=== PATIENT | female | born 1940 | race Caucasian/White ===

== ENCOUNTER 2017-06-19 09:22 | Observation (INO) ==
[2017-06-19] MEDS ORDERED: ASPIRIN PO STA (09:33)
--- NOTE | 2017-06-19 09:37 | EKG Report ---
Test Performed on : 06/19/2017 09:31:34 AM Test Reason : CHEST PAIN Blood Pressure : / mmHG Vent. Rate : 065 BPM Atrial Rate : 065 BPM P-R Int : 152 ms QRS Dur : 072 ms QT Int : 414 ms P-R-T Axes : 067 005 050 degrees QTc Int : 430 ms Sinus rhythm. with premature atrial complexes. Possible Inferior infarct , age undetermined Abnormal ECG When compared with ECG of 30-DEC-2009 11:19, premature atrial complexes. are now present Borderline criteria for Inferior infarct are now present Unconfirmed Result
[2017-06-19 10:19] LABS: INR 0.9 (0.86-1.15); PROTIME 12.9 Seconds (12.1-15.5)
[2017-06-19 10:20] LABS: PTT PL 33.2 Seconds (22.6-43.9)
--- NOTE | 2017-06-19 10:22 | Diag Imaging Result Doc PS360 ---
EXAM: CHEST-PORTABLE HISTORY: CP TECHNIQUE: Single view of the chest was performed portably. COMPARISON: 12/03/2016 FINDINGS: There is stable moderate elevation of the right hemidiaphragm. There are surgical clips right axilla. The cardiomediastinal silhouette is within normal limits. The pulmonary vasculature is not congested. No infiltrate, effusion, or pneumothorax is appreciated. IMPRESSION: No acute cardiopulmonary abnormality is identified. Electronically signed by Diana Michelle 06/19/2017 10:20 AM
[2017-06-19 10:26] LABS: AGAP 10; ALBUMIN 3.9 g/dL (3.5-5.0); ALKALINE PHOSPHATASE 77 U/L (32-104); BUN 11 mg/dL (8-22); CALCIUM 9.1 mg/dL (8.8-10.2); CHLORIDE 105 mmol/L (98-107); CK PROFILE 34 U/L (24-173); COSMO 285; GOT 15 U/L (10-30); GPT 13 U/L (10-36); MAGNESIUM 2.1 mg/dL (1.5-2.7); POTASSIUM 3.7 mmol/L (3.5-5.1); SODIUM 142 mmol/L (136-145); TCO2 27 mmol/L (25-35); TOTAL PROTEIN 6.2 g/dL (6.3-8.3)
[2017-06-19] MEDS ORDERED: APRESOLINE IV ONE (10:55)
--- NOTE | 2017-06-19 10:56 | ED EKG INTERP ---
This chart was entered by Erica Smith Scribe, acting as scribe for Dl Briggs MD. EKG Interpretation - EKG Time of EKG reading by physician:: 09:31 EKG Read and Signed by:: Dl Briggs EKG Interpretation (*Must complete 3 of following elements*): Abnormal Rate: 65 Rhythm: sinus rhythm with premature atrial complexes [place]: normal QRS: normal ST Wave: normal Comments: possible inferior infarct, age undetermined Attestation - Physician/ IMELDA Attestation Patient care was provided by Advanced Practice Provider:: No The physician spent face to face time with patient:: Yes Advanced Practice Provider documentation review:: Supervising physician onsite and consulted in the evaluation and care of this patient. The physician did have a face to face encounter with the patient. This chart was documented by the indicated scribe, (Erica Smith Scribe) and accurately reflects the services I performed and decisions made by me, Dl Briggs MD, as attested by the provider's signature.
--- NOTE | 2017-06-19 11:19 | PROVIDER DOCUMENTATION ---
This chart was entered by Erica Smith Scribe, acting as scribe for Dl Briggs MD. HPI-Chest Pain - General Chief Complaint: Chest Pain Stated Complaint: CHEST PAIN Time Seen by Provider: 06/19/17 09:32 Source: patient Allergies/Adverse Reactions: Patient Allergies Allergy/AdvReac Type Severity Reaction Status Date / Time No Known Allergies Allergy Verified 06/19/17 09:29 Home Medications: Home Medication List Medication Instructions Recorded Confirmed Last Taken Type Anastrozole [Arimidex] 1 mg PO DAILY 06/19/17 06/19/17 06/19/17 History Aspirin 325 mg PO QHS 06/19/17 06/19/17 Unknown History Atenolol [Tenormin] 25 mg PO BID 06/19/17 06/19/17 06/19/17 History - History of Present Illness-CP Nature of Presenting Problem: Patient is a 77 year old female who presents in the ED with complaints of chest pain. She states she has had an intermittent tight/heavy sensation in her chest over the last several days, and states she has had the pain approximately two times a day since onset. She also states her pain lasts approximately an hour with each episode, and states she has also had mild nausea. She reports she has not had a stress test in many years, and reports she has a history of hypertension for which she takes Atenolol. She also reports she takes aspirin daily, has a history of breast cancer (in remission for 9 years), and drinks one glass of wine with dinner each evening. She denies headache, vomiting, urinary changes, and any other symptoms. Location: reports: substernal Chest Pain Radiation: reports: no radiation Quality of Pain: reports: pressure, tightness Severity in ED: moderate Onset/Duration: abrupt, other ("several days") Timing: gone now, intermittent Context/Activities at Onset: reports: none Modifying Factors: improves with: nothing Associated Symptoms: reports: nausea. denies: vomiting Nitro Today/Relief: no nitro taken today Aspirin Treatment Today: 325 mg x 1, provided at home Prior Chest Pain/Cardiac Workup: reports: no prior chest pain, no prior cardiac workup, non-cardiac Similar Symptoms Previously?: No Recently Seen Here or By Another Healthcare Provider: No Review of Systems - Adult - REVIEW OF SYSTEMS - ADULT Constitutional: reports: no symptoms reported Eyes: reports: no symptoms reported Ears, Nose, Mouth & Throat: reports: no symptoms reported Cardiovascular: reports: chest pain Respiratory: reports: no symptoms reported Gastrointestinal: reports: nausea. denies: vomiting Genitourinary: reports: no symptoms reported. denies: see HPI, dysuria, discharge, frequency, flank pain, frequent UTI's, hematuria, hesitency, incontinence, urinary retention, urgency, other Musculoskeletal: reports: no symptoms reported Integumentary: reports: no symptoms reported Neurological: reports: no symptoms reported. denies: headache/migraines Psychiatric: reports: no symptoms reported Endocrine: reports: no symptoms reported Hematologic/Lymphatic: reports: no symptoms reported Allergic/Immunologic: reports: no symptoms reported All Other Systems: Reviewed and Negative Past History - Adult - PAST MEDICAL HISTORY-ADULT Review of Records: reports: Old Records Reviewed, Nursing Assessment Review, Medications Reviewed Major Childhood Illnesses: reports: denies history Cardiovascular: reports: HTN Respiratory: reports: denies history Gastrointestinal: reports: denies history Obstetrical/Gynecological: reports: denies history Genitourinary: reports: denies history Musculoskeletal: reports: denies history Neurological: reports: denies history Psychiatric: reports: denies history Endocrine/Immune: reports: cancer (breast) Other Conditions: reports: denies history - IMMUNIZATION STATUS Childhood Immunizations: See Nurse Assessment Flu Vaccine: See Nurse Assessment - FAMILY HISTORY Family History: reviewed, not pertinent - SOCIAL HISTORY Smoking: denies Substance Use: none/never Alcohol Use Frequency: every day Number of drinks per typical drinking period:: 1 drink (one glass of wine daily) Living Situation: family Physical Exam-General - PHYSICAL EXAM-ADULT Initial Vital Signs Reviewed: Yes - CONSTITUTIONAL General Appearance: alert, no apparent distress - EYES Eyes: PERRL/EOMI, pink conjunctivae - HEAD, EARS, NOSE, MOUTH & THROAT HENMT: normocephalic/atraumatic, moist mucous membranes - NECK Neck: full range of motion, supple - RESPIRATORY Respiratory: chest non-tender, lungs clear, normal breath sounds, no pleuratic chest pain, no respiratory distress, no accessory muscle use - CARDIOVASCULAR Cardiovascular: normal peripheral pulses, regular rate, rhythm, no edema, no gallop, no JVD, no murmur - GASTROINTESTINAL (ABDOMEN) Abdominal Exam: non tender, soft, no organomegaly, no pulsatile mass - LYMPHATIC Lymphatic: no adenopathy - MUSCULOSKELETAL Back Exam: normal inspection, no CVA tenderness, no vertebral tenderness Extremity: normal range of motion, non-tender, no pedal edema, no calf tenderness, pelvis stable - SKIN Integumentary: normal color, normal turgor, warm/dry - NEUROLOGIC Neurologic: grossly normal, no motor/sensory deficits - PSYCHIATRIC Psych/Mental Status: normal mood/affect, normal thought content, normal thought process, oriented x 3 Progress - PLAN OF CARE/RESULTS Progress/Plan/Lab Results: Vital Signs - 8 hr 06/19/17 09:26 Pulse Rate 62 Respiratory Rate 18 Blood Pressure 170/99 Laboratory Results - last 24 hr 06/19/17 06/19/17 06/19/17 09:55 09:55 09:55 PT INR APTT (Factor Assay) D-Dimer Sodium 142 Potassium 3.7 Chloride 105 Carbon Dioxide 27 Anion Gap 10 BUN 11 Creatinine 0.6 Estimated GFR/1.73 m2 > 60 BUN/Creatinine Ratio 18 Glucose 137 H Calculated Osmolality 285 Calcium 9.1 Magnesium 2.1 Total Bilirubin 0.40 AST 15 ALT 13 Alkaline Phosphatase 77 Creatine Kinase 34 Troponin T < 0.010 [id number] Pept 302 Total Protein 6.2 L Albumin 3.9 Globulin 2.0 Albumin/Globulin Ratio 2.0 06/19/17 09:55 PT 12.9 INR 0.90 APTT (Factor Assay) 33.2 D-Dimer 0.25 Sodium Potassium Chloride Carbon Dioxide Anion Gap BUN Creatinine Estimated GFR/1.73 m2 BUN/Creatinine Ratio Glucose Calculated Osmolality Calcium Magnesium Total Bilirubin AST ALT Alkaline Phosphatase Creatine Kinase Troponin T [id number] Pept Total Protein Albumin Globulin Albumin/Globulin Ratio Orders Category Date Time Status Cardiac Monitoring DIRECTED Care 06/19/17 09:34 Active Saline Loc NOW Care 06/19/17 09:34 Active CHEST-PORTABLE [RAD] Stat Exams 06/19/17 09:33 Completed CBC WITH ELECTRONIC DIFF [HEME] Stat Lab 06/19/17 09:34 Ordered CK PROFILE [SP CHEM] Stat Lab 06/19/17 09:55 Completed COMPREHENSIVE METABOLIC PANEL [CHEM] Stat Lab 06/19/17 09:[address] D-D[address]ER [address] [COAG] Stat Lab 06/19/17 09:55 Completed MAGNESIUM [CHEM] Stat Lab 06/19/17 09:55 Completed PRO B-NATRIURETIC PEPTIDE Stat Lab 08/23/17 09:55 Completed [address]IME WITH INR PL [COAG] Stat Lab 06/19/17 09:[address] [COAG] Stat Lab 06/19/17 09:55 Completed TROPONIN T Stat Lab 06/19/17 09:55 Completed Aspirin Med 06/19/17 09:33 Discontinued 325 mg PO STAT STA Hydralazine [Apresoline] Med 06/19/17 10:55 Discontinued 10 mg IV NOW ONE EKG [EKG] Stat Ther 06/19/17 09:34 Draft Result Diagrams: 06/19/17 09:55 - REASSESSMENT Reassessment #1 Time Reassessed: 11:18 Status: unchanged - XRAY 1 XRAY Study: Chest Impression: Normal XRAY Interpretation: no acute cardiopulmonary abnormalities identified. - CONSULTS/PCP/HOSPITALIST Notification #1 *Consult/PCP/Hospitalist*: Dr. Carmen Time Discussed: 11:18 Consult Disposition: Will see in ED, Admit Departure - Departure Date of Disposition Decision: 06/19/17 Time of Disposition Decision: 11:18 DIAGNOSIS: Chest pain, Hypertension Disposition: ADMITTED INPATIENT 09 Certified Medical Emergency: Emergent Condition: Stable Referrals and Follow-Ups: Luca Medrano MD [Primary Care Provider] - - Critical Care Note This patient required my direct & personal management of CC.: No Attestation - Physician/ IMELDA Attestation Patient care was provided by Advanced Practice Provider:: No The physician spent face to face time with patient:: Yes Advanced Practice Provider documentation review:: Supervising physician onsite and consulted in the evaluation and care of this patient. The physician did have a face to face encounter with the patient. This chart was documented by the indicated scribe, (Erica Smith Scribe) and accurately reflects the services I performed and decisions made by me, Dl Briggs MD, as attested by the provider's signature.
[2017-06-19] MEDS ORDERED: TEARISOL OPH SOLUTION BOTH EYES PRN (17:28)
[2017-06-19 17:56] LABS: HEMATOCRIT 43.7 % (37.0-47.0); HEMOGLOBIN 14.5 g/dL (12.0-16.0); MCH 30.3 PG (27-31); MCHC 33.2 g/dL (33-37); MCV 91.4 FL (81-99); MPV 10.3 FL (7.4-10.4); RBC 4.78 XMIL (4.2-5.4)
--- NOTE | 2017-06-19 18:32 | HISTORY AND PHYSICAL ---
PRIMARY CARE PHYSICIAN: CHIEF COMPLAINT: Chest pain. HISTORY OF PRESENT ILLNESS: This is a 77-year-old female with a history of breast cancer, hypertension, and history of a brain hemorrhage. She presented to the emergency room complaining of chest pain that she describes as a tight heavy sensation over her chest that she is having 2 or 3 times a day over the last week. She said that it starts spontaneously, lasts about an hour and ends spontaneously. She did have nausea once with the episode. She denied any alleviating or exacerbating symptoms. She denied any syncope, any shortness of breath or palpitations with these episodes. EKG revealed a sinus rhythm with PACs. She was given hydralazine and aspirin as blood pressures were running in the 150s to 170s over 90s in the ER. After hydralazine, she did drop to 150s over 70s. She is being admitted for further evaluation and treatment. PAST MEDICAL HISTORY: 1. Breast cancer, 9 years cancer-free. 2. Brain hemorrhage. PAST SURGICAL HISTORY: Hysterectomy and mastectomy. SOCIAL HISTORY: She denies alcohol, tobacco, or illicit drug use. ALLERGIES: No known drug allergies. HOME MEDICATIONS: Tearisol 2 drops both eyes p.r.n., atenolol 25 mg b.i.d., aspirin 325 at bedtime, Arimidex 1 mg daily. REVIEW OF SYSTEMS: A 14-point review of systems discussed with patient with pertinent positives stated in HPI. She denied any syncope, palpitations, dizziness, shortness of breath, PND, orthopnea, cough, fever, chills, nausea, vomiting, diarrhea, constipation, black or bloody vomitus, black or bloody stools. PHYSICAL EXAMINATION: GENERAL: This is a 77-year-old female who is sitting up in the bed, in no distress. VITAL SIGNS: Blood pressure is 152/72 with a heart rate of 52, respirations are 18, temperature is 97.4 degrees oral with room air saturations 98-100%. HEENT: Head is normocephalic, atraumatic. Pupils equal, round, react to light. EOMs are intact sclerae. Sclerae are anicteric. Mucous membranes are dry. NECK: Supple with trachea midline. CARDIOVASCULAR: Regular rate and rhythm S1, S2 appreciated. PULMONARY: Breath sounds are clear with no increased work of breathing noted. GASTROINTESTINAL: Abdomen is soft, nontender, nondistended, with bowel sounds in all 4 quadrants. EXTREMITIES: No clubbing, cyanosis, or edema. Calves are nontender. Pulses are palpable x 4. NEUROLOGIC: She is alert and oriented x 3 with cranial nerves 2-12 grossly intact. DIAGNOSTICS: Sodium is 142, potassium 3.7, BUN 11, creatinine 0.6 with a glucose of 137. Troponin is less than 0.010. D-dimer 0.25. Chest x-ray revealed no acute processes. EKG revealed sinus rhythm with PACs at a rate of 65. ASSESSMENT: 1. Chest pain. This pain is intermittent. 2. Hypertension. 3. Deep vein thrombosis prophylaxis. 4. GI prophylaxis. PLAN: She will be admitted to the hospital and placed on telemetry. We will continue her home medications. If she rules out with troponins, she can be n.p.o. for a stress test in the morning. Further treatments pending hospital course. Dictated by AZAEL Jackson for Kaushik Carmen MD cc: AZAEL Jackson MD
[2017-06-19] MEDS: CALTRATE 600 + D PO SCH (20:59)
[2017-06-19] MEDS ORDERED: ASPIRIN PO SCH (21:00)
[2017-06-19 22:37] LABS: MANUAL DIFF NEEDED? NO
[2017-06-19 22:38] LABS: BASO% 0.6 % (0.0-0.8); EOS# 0.21 X1000 (0.0-0.7); EOS% 4.1 % (0.0-10.0); HEMATOCRIT 41.9 % (37.0-47.0); HEMOGLOBIN 13.7 g/dL (12.0-16.0); IMM GRAN# 0.01 X1000 (0.0-0.04); IMM GRAN% 0.2 % (0.0-0.5); LYMPH# 0.97 X1000 (1.2-3.4); LYMPH% 18.9 % (20.5-51.1); MCH 30.6 PG (27-31); MCHC 32.7 g/dL (33-37); MCV 93.7 FL (81-99); MONO# 0.25 X1000 (0.11-0.59); MONO% 4.9 % (1.7-9.3); MPV 11.5 FL (7.4-10.4); NEUT% 71.3 % (42.2-75.2); PLT 138 X1000 (130-400); RBC 4.47 XMIL (4.2-5.4)
--- NOTE | 2017-06-20 03:37 | PROGRESS NOTE ---
DATE: 06/19/2017 ADDENDUM: Patient seen and examined. Full plan discussed with and dictated by the nurse practitioner. Patient notes that she has been having chest pain off and on for the past couple of months. It will come on, last for several hours, sometimes a day, and then go away. States this pain lasted for half a day. It currently is improved. Denies any nausea. Denies vomiting. Denies any chest pressure. Denies any radiation to her left side of her arm. PHYSICAL EXAMINATION: Vital signs reviewed. She is afebrile. Blood pressure stable. Heart rate regular rate and rhythm. ASSESSMENT: 1. Chest pain. 2. Elevated blood pressure. PLAN: We will continue to rule out for a myocardial infarction. We will continue to follow. Please see full dictation. cc: Kaushik Carmen MD
[2017-06-20 05:48] LABS: HEMATOCRIT 40.3 % (37.0-47.0); HEMOGLOBIN 13.3 g/dL (12.0-16.0); MCH 30.4 PG (27-31); MPV 10.7 FL (7.4-10.4); RBC 4.38 XMIL (4.2-5.4)
[2017-06-20] MEDS ORDERED: ARIMIDEX PO SCH (09:00)
[2017-06-20] MEDS: CALTRATE 600 + D PO SCH (09:30)
[2017-06-20] MEDS ORDERED: TENORMIN PO SCH (13:15)
[2017-06-20 16:36] VITALS: BP 115/77
--- NOTE | 2017-06-20 17:54 | DISCHARGE SUMMARY ---
ADMISSION DATE: 06/19/2017 DISCHARGE DATE: 06/20/2017 PRIMARY CARE PHYSICIAN: Luca Medrano MD. DIAGNOSES: 1. Chest pain. 2. Hypertension. DIAGNOSTICS: 06/19/2017: Chest x-ray revealed no acute cardiopulmonary abnormality identified. HOSPITAL COURSE: Ms. Reyes presented to the hospital complaining of chest pain that she described as a tightness over her chest happening 2-3 times a day. She was ruled out by troponins. We attempted a CTA cardiac whichwas unable to be performed as the patient has continues to have expanders placed after mastectomy. In light of her having no further chest pain and being ruled out with troponins, the patient wishes to be discharged and continue her testing on an outpatient basis. We will schedule a Lexiscan in the next few days for her although the patient states that she may not go to a scheduled test. She wishes to speak to Dr. Medrano and get his opinion before she does any further testing. She was informed that we will go ahead and have an appointment scheduled for her, and it will be up to her whether to keep the appointment or cancel. I did encourage her to have the testing. DISCHARGE PHYSICAL EXAMINATION: Cardiovascular: Regular rate and rhythm. S1 and S2 appreciated. Pulmonary: Breath sounds are clear. No increased work of breathing noted. Gastrointestinal: Abdomen is soft, nontender, nondistended with bowel sounds in all 4 quadrants. Extremities: No clubbing, cyanosis, or edema. Calves are nontender. Pulses palpable x4. DISCHARGE MEDICATIONS: 1. Arimidex 1 mg daily. 2. Aspirin 325 at bedtime. 3. Tenormin 25 b.i.d. 4. Terazol ophthalmic solution 2 drops in her eyes p.r.n. 5. Caltrate Plus D3 and minerals 1 b.i.d. DISCHARGE VITAL SIGNS: Blood pressure is 152/74 with a heart rate of 61, respirations 18, temperature 98.3 degrees, room air saturations are 98-99%. FOLLOWUP: 1. She is to call Dr. Medrano today or in the morning To notify him of events and discuss having a stress test done. 2. As stated before, we will schedule a Lexiscan for the patient prior to discharge. She is being discharged home in stable condition with family members. 3. She was instructed to return to the emergency room for recurrence of chest pain, shortness of breath, dizziness, syncope, palpitations or any questions or concerns she may have. TIME SPENT: This is a greater than 30 minute discharge. Dictated by AZAEL Jackson for Kaushik Carmen MD cc: AZAEL Jackson MD [facility]
--- NOTE | 2017-06-21 03:46 | DISCHARGE SUMMARY ---
ADMISSION DATE: 06/19/2017 DISCHARGE DATE: 06/20/2017 ADDENDUM: The patient seen and examined. Plan discussed with nurse practitioner. Please see note. Patient currently is having no chest pain. Notes that her symptoms have completely resolved. She was unable to undergo a cardiac CT. Since her symptoms have resolved, she will have an outpatient stress test scheduled. The patient is aware and is okay with going home. Discussed with her that should symptoms worsen or return, she will certainly need to return to the emergency department. cc: Kaushik Carmen MD
--- NOTE | 2017-06-21 09:37 | Diag Imaging Result Doc PS360 ---
EXAM: CT HEART WITH CALCIUM SCORING HISTORY: Syncope, Prolonged QT interval TECHNIQUE: Noncontrasted CT heart with calcium score as per cardiology protocol. CTA was not performed as scheduled due to metallic artifact right chest wall. COMPARISON: None. FINDINGS: This is an over read of the extra-cardiovascular structures. Evaluation of the cardiovascular system will be dictated in a separate report by the patient access manager. Coronary calcium score is zero. There is elevation the right hemidiaphragm. There is right lower lobe atelectasis. There are splenic granulomata. The bony structures are grossly intact. There are specific interstitial and groundglass opacities with the left lower lobe and visualized lingula. There is a calcified granuloma left lower lobe. There are mildly prominent mediastinal lymph nodes. IMPRESSION: 1.Elevated right hemidiaphragm with right lower lobe atelectasis. 2.Interstitial and groundglass markings inferior left lower lobe. 3.Calcium score 0. 4.Metallic device right chest wall produces streak artifact. Electronically signed by Diana Michelle 06/21/2017 9:34 AM
== END 2017-06-20 17:20 | disposition home or self-care (01) ==
LOC: P.MEDSURG 09:22 → P.ED 09:22
PROVIDERS: ADMIT Family Medicine; ATTEND Family Medicine